=== PATIENT | male | born 1975 | race Caucasian/White ===

== ENCOUNTER → 2023-11-10 06:22 | Day surgery (SDC) | payer OTHER, SELFPAY ==
[2023-11-10 07:50] LABS: Glucose - Point of Care 105 mg/dl (70-99)
== END ==
LOC: GI 06:22
PROVIDERS: ATTENDING PHYSICIAN Internal Medicine Gastroenterology; FAMILY PHYSICIAN Family Medicine
DX: Z12.11 Encounter for screening for malignant neoplasm of colon (principal); K57.30 Diverticulosis of large intestine without perforation or abscess without bleeding; K64.8 Other hemorrhoids; D12.2 Benign neoplasm of ascending colon
CPT/HCPCS: 45385; 88305; 82962